=== PATIENT | female | born 1985 | race African-American/Black ===

== ENCOUNTER 2023-05-09 17:34 | Day surgery (SDC) | payer OTHER ==
[~2023-05-09] VITALS: Ht 157.5 cm; Wt 65.5 kg
[2023-05-09 18:27] LABS: BASO % 0.2 % (0.0-1.0); EOS # 0.1 10^3/uL (0.0-0.5); EOS % 1.3 % (0.0-3.0); HEMATOCRIT 31.9 % (36.0-47.0); HEMOGLOBIN 10.6 g/dl (12.0-15.5); LYMPH # 1.7 10^3/uL (1.5-5.0); LYMPH % 39.1 % (24.0-44.0); MEAN CORPUSCULAR HEMOGLOBIN 27.1 pg (27.0-33.0); MEAN CORPUSCULAR HGB CONC 33.2 g/dl (32.0-36.5); MEAN CORPUSCULAR VOLUME 81.6 fl (80.0-96.0); MONO # 0.3 10^3/uL (0.0-0.8); MONO % 5.6 % (2.0-8.0); NEUTROPHILS # 2.4 10^3/uL (1.5-8.5); NEUTROPHILS % 53.6 % (36.0-66.0); PLATELET COUNT, AUTOMATED 283 10^3/uL (150-450); RED BLOOD COUNT 3.91 10^6/uL (4.00-5.40); WHITE BLOOD COUNT 4.5 10^3/uL (4.0-10.0)
[2023-05-09 18:51] LABS: BLOOD UREA NITROGEN 7 MG/DL (9-23); CALCIUM LEVEL 9.1 MG/DL (8.5-10.1); CARBON DIOXIDE LEVEL 25 MMOL/L (20-31); CHLORIDE LEVEL 103 MMOL/L (98-107); GLOMERULAR FILTRATION RATE > 60.0 (>60); GLUCOSE, FASTING 93 MG/DL (60-100); POTASSIUM SERUM 3.6 MMOL/L (3.5-5.1); SODIUM LEVEL 139 MMOL/L (136-145)
[2023-05-09 19:08] LABS: HCG, SERUM QUANTITATIVE 1708.6 MIU/ML (<4.2)
[2023-05-09] MEDS ORDERED: MORPHINE 4 MG/ML 1ML VIAL IV ONE ×2 (19:20→21:10)
[2023-05-09] MEDS ORDERED: NS 1,000 ML IV ONE (19:25)
[2023-05-09 19:47] LABS: HEMATOCRIT 29.6 % (36.0-47.0); HEMOGLOBIN 9.5 g/dl (12.0-15.5); MEAN CORPUSCULAR HEMOGLOBIN 26.5 pg (27.0-33.0); MEAN CORPUSCULAR HGB CONC 32.1 g/dl (32.0-36.5); MEAN CORPUSCULAR VOLUME 82.7 fl (80.0-96.0); PLATELET COUNT, AUTOMATED 294 10^3/uL (150-450); RED BLOOD COUNT 3.58 10^6/uL (4.00-5.40); WHITE BLOOD COUNT 3.2 10^3/uL (4.0-10.0)
[2023-05-09] MEDS ORDERED: METHYLERGONOVINE MALEATE 0.2MG/ML 1ML VIAL IM STA (19:57)
[2023-05-09] MEDS ORDERED: TRANEXAMIC ACID INJection 1,000 MG in IV FLUID PLACE HOLDER 1 EA IV ONE (20:00)
[2023-05-09] MEDS ORDERED: TRANEXAMIC ACID 100 MG/ML 10ML VIAL IV ONE (20:10)
[2023-05-09] MEDS ORDERED: TRANEXAMIC ACID INJection 1,000 MG in D5W MINI-BAG PLUS 100 ML IV ONE (20:25)
[2023-05-09] MEDS ORDERED: DOXYCYCLINE HYCLATE 100MG TABLET PO ONE (20:30)
[2023-05-09] MEDS ORDERED: ONDANSETRON 4MG 2ML VIAL IV ONE (21:10)
[2023-05-09] MEDS ORDERED: MULTTAB20 PO (21:11)
[2023-05-09] MEDS ORDERED: HOME MED LIST COMPLETE! XX SCH (21:15)
[2023-05-09] MEDS ORDERED: oxyCODONE 5MG TAB PO PRN (21:50)
[2023-05-09] MEDS ORDERED: MEPERIDINE 25 MG/ML 1ML VIAL IV PRN (21:50)
[2023-05-09] MEDS ORDERED: fentaNYL 100 MCG/2 ML INJECTION IV PRN (21:50)
[2023-05-09] MEDS ORDERED: HYDROMORPHONE HCL 0.5 MG/ 0.5 ML SYRINGE IV PRN (21:50)
[2023-05-09] MEDS ORDERED: METOCLOPRAMIDE INJ 10MG/2ML VIAL IV PRN (21:50)
[2023-05-09] MEDS ORDERED: ONDANSETRON 4MG 2ML VIAL IV PRN (21:50)
[2023-05-09] MEDS ORDERED: diphenhydrAMINE 50MG/ML VIAL IV PRN (21:50)
[2023-05-09] MEDS ORDERED: LR 1,000 ML IV SCH (21:50)
[2023-05-09] MEDS ORDERED: ONDANSETRON 4MG 2ML VIAL As Ordered ONE (21:53)
[2023-05-09] MEDS ORDERED: KETOROLAC 60MG 2ML VIAL As Ordered ONE (21:53)
[2023-05-09] MEDS ORDERED: METOCLOPRAMIDE INJ 10MG/2ML VIAL As Ordered ONE (21:53)
[2023-05-09] MEDS ORDERED: ROCURONIUM BROMIDE 50MG/5ML VIAL As Ordered ONE (21:53)
[2023-05-09] MEDS ORDERED: MIDAZOLAM INJ 2MG/2ML VIAL As Ordered ONE (21:53)
[2023-05-09] MEDS ORDERED: fentaNYL 100 MCG/2 ML INJECTION As Ordered ONE (21:53)
[2023-05-09] MEDS ORDERED: SUGAMMADEX SODIUM 500 MG/5 ML VIAL (BRIDION) As Ordered ONE (21:53)
[2023-05-09] MEDS ORDERED: ACETAMINOPHEN 1000MG 100ML IV BAG As Ordered ONE (21:53)
[2023-05-09] MEDS ORDERED: LIDOCAINE 2% 100MG/5ML SDV (FOR ANES.) As Ordered ONE (21:53)
[2023-05-09] MEDS ORDERED: propofoL 200 MG/20 ML VIAL As Ordered ONE (21:53)
[2023-05-09] MEDS ORDERED: METHYLERGONOVINE MALEATE 0.2MG/ML 1ML VIAL As Ordered ONE (22:02)
[2023-05-09 23:26] VITALS: BP 117/64; TEMP 97.4; O2SAT 100
== END 2023-05-09 21:20 | disposition home or self-care (01) ==
LOC: M ED 17:34 → M SDC 17:35 → M ED 21:20 → M SDC 21:20
PROVIDERS: ATTEND Obstetrics & Gynecology
DX: O03.4 Incomplete spontaneous abortion without complication (principal)
CPT/HCPCS: 59812; 76801; 76815; 80048; 84702; 85025; 85027; 86850; 86900; 86901; 86920; 87635; 88305; 96361; 96365; 96375; 96376; 99285; J0131; J1100; J1885; J2210; J2250; J2405; J2765; J3010; S0191